=== PATIENT | male | born 1990 | race Asian ===

== ENCOUNTER 2024-05-26 22:17 | Emergency (ER) | payer OTHER ==
[2024-05-26 22:34] VITALS: BP 139/73; O2SAT 100
--- NOTE | 2024-05-26 23:38 | ED Physician Documentation ---
PD HPI UPPER EXT INJURY - Stated complaint Stated Complaint: RT HAND LAC - Chief complaint Chief Complaint: Laceration - History obtained from History obtained from: Patient - Additonal information Additional information: HPI from patient. Patient was repairing stairs at home tonight using a utility knife when, at approximately 9:45 PM, the knife slipped, causing laceration to patient's right thumb. Patient is right hand dominant. He is UTD on tetanus immunization. Denies weakness, numbness. PD PAST MEDICAL HISTORY - Past Medical History Past Medical History: No Cardiovascular: None Respiratory: None Neuro: None Endocrine/Autoimmune: None GI: None : None HEENT: None Psych: None Musculoskeletal: None Derm: None - Past Surgical History Past Surgical History: No General: Appendectomy - Allergies Allergies/Adverse Reactions: Allergies Allergy/AdvReac Type Severity Reaction Status Date / Time pet dander Allergy Respiratory Uncoded 05/26/24 22:28 - Social History Does the pt smoke?: No Smoking Status: Never smoker PD ED PE NORMAL - Vitals Vital signs reviewed: Yes - General General: Alert and oriented X 3, No acute distress - Derm Derm: Other (bevelled, V-shaped laceration to distal aspect of right thumb . moderate amount of material stuck to the thumb around the wound (caulk). no exposed bone, NV structure(s), adipose tissue; the laceration depth is to dermis (superficial)) - Neuro Neuro: No motor deficit, No sensory deficit Results - Vitals Vitals: Oxygen O2 Source Room air PD Medical Decision Making - ED course Complexity details: considered differential, d/w patient ED course: superficial right thumb laceration that would benefit from repair with tissue adhesive or t-strip repair; I recommended the latter and patient is agreeable to this. I was attempting to remove/peel away as much of the adhesive caulk from the area but this was causing patient discomfort, prompting him to ask if he can remove the material himself. He is provided sterile pick-ups and I then had to leave the bedside to tend to another ED patient that was critically ill. By the time I was ready to reevaluate this patient, he had left ED. Departure - Departure Disposition: 07 Against Medical Advice Clinical Impression: Laceration Condition: Good Forms: PCP List Discharge Date/Time: 05/27/24 01:42
== END 2024-05-27 01:42 | disposition left against medical advice (07) ==
LOC: ED 22:17
DX: S61.011A Laceration without foreign body of right thumb without damage to nail, initial encounter (principal); W26.0XXA Contact with knife, initial encounter
CPT/HCPCS: 99281; 99282